=== PATIENT | female | born 1990 | race Caucasian/White ===

== ENCOUNTER 2016-10-09 12:16 | Emergency (ER) | payer SELFPAY ==
[2016-10-09] MEDS ORDERED: DEXAMETHASONE 10 MG/ML VIAL PO STA (12:44)
[2016-10-09] MEDS ORDERED: CHERRY SYRUP 10 ML UDC PO ONE (12:48)
[2016-10-09] MEDS ORDERED: DEXAMETHASONE 10 MG/ML VIAL ONE (12:48)
== END 2016-10-09 12:57 | disposition home or self-care (01) ==
DX: J02.0 Streptococcal pharyngitis (principal); H92.02 Otalgia, left ear
CPT/HCPCS: 87430; 99283; A9270

== ENCOUNTER 2017-04-05 15:40 | Outpatient (CLI) | payer MEDICAID ==
[2017-04-05 19:03] LABS: BASOPHILS # (AUTO) 0.1 10^3/uL (0.0-0.1); BASOPHILS % (AUTO) 0.7 %; EOSINOPHILS # (AUTO) 0.1 10^3/uL (0.0-0.7); EOSINOPHILS % (AUTO) 1.1 %; HGB - HEMOGLOBIN 11.4 g/dL (12.0-16.0); LYMPHOCYTES # (AUTO) 2.1 10^3/uL (1.5-3.5); LYMPHOCYTES % (AUTO) 30.3 %; MEAN CORPUSCULAR HEMOGLOBIN 31.3 pg (27.0-31.0); MEAN CORPUSCULAR HGB CONC 33.5 g/dL (32.0-36.0); MEAN CORPUSCULAR VOLUME 93.5 fL (81.0-99.0); MONOCYTES # (AUTO) 0.5 10^3/uL (0.0-1.0); NEUTROPHILS # (AUTO) 4.3 10^3/uL (1.5-6.6); NEUTROPHILS % (AUTO) 60.9 %; RED BLOOD COUNT 3.64 10^6/uL (4.20-5.40); RED CELL DISTRIBUTION WIDTH 13.4 % (12.0-15.0); UNCORRECTED WHITE BLOOD COUNT 7.1 x10^3/uL; WHITE BLOOD COUNT 7.1 x10^3/uL (4.8-10.8)
[2017-04-05 19:20] LABS: ALBUMIN/GLOBULIN RATIO 1.5 (1.0-2.2); BILIRUBIN,TOTAL 0.3 mg/dL (0.2-1.0); BUN - BLOOD UREA NITROGEN 9 mg/dL (6-20); CALCIUM 8.9 mg/dL (8.5-10.3); CARBON DIOXIDE - CO2 25 mmol/L (21-32); CHLORIDE 108 mmol/L (101-111); CHOL/HDL RATIO 2.5 (<4.4); CHOLESTEROL 131 mg/dL; CREATININE 0.6 mg/dL (0.4-1.0); GFR - MDRD 121 (>89); GLUCOSE 92 mg/dL (70-100); HDL CHOLESTEROL 53 mg/dL; LDL/HDL RATIO 1.2 (<4.4); POTASSIUM 3.8 mmol/L (3.5-5.0); SODIUM 138 mmol/L (135-145); TOTAL PROTEIN 6.6 g/dL (6.7-8.2); TRIGLYCERIDES 62 mg/dL; VLDL CHOLESTEROL 12 mg/dL
== END 2017-04-05 15:41 | disposition home or self-care (01) ==
LOC: LAB.N 15:40
PROVIDERS: ATTEND Nurse Practitioner Gerontology
DX: Z13.9 Encounter for screening, unspecified (principal)
CPT/HCPCS: 36415; 80053; 80061; 84443; 85025

== ENCOUNTER 2017-05-08 09:04 | Emergency (ER) | payer MEDICAID ==
[2017-05-08 09:21] VITALS: BP 102/72
[2017-05-08] MEDS ORDERED: PHENAZOPYRIDINE 100 MG TABLET PO STA (10:01)
--- NOTE | 2017-05-08 10:03 | ED Physician Documentation ---
History of Present Illness - Stated complaint Stated Complaint: FEMALE - Chief complaint Chief Complaint: UTI - Additonal information Additional information: hx from pt 26 fe,[place] LMP now denies preg dysuria and hesitance since 630 AM no vag dc or concern for STD no fever no NV no flank pain want to be checked for UTI Review of Systems Constitutional: denies: Fever, Chills GI: denies: Abdominal Pain, Nausea, Vomiting : reports: Dysuria, Frequency, Hesitancy, LMP (now). denies: Discharge, Now EGA Musculoskeletal: denies: Back pain Immunocompromised: denies: Immunocompromised PD PAST MEDICAL HISTORY - Past Surgical History Past Surgical History: No - Present Medications Home Medications: Ambulatory Orders Medication Instructions Recorded Confirmed Azithromycin [Zithromax] 250 mg PO DAILY #6 tablet 10/09/16 Sulfamethox/Trimeth 800/160 1 each PO BID #14 tablet 05/08/17 [Bactrim Ds 800/160] - Allergies Allergies/Adverse Reactions: Allergies Allergy/AdvReac Type Severity Reaction Status Date / Time Penicillins Allergy Anaphylaxis Verified 10/09/16 12:28 - Social History Does the pt smoke?: No Smoking Status: Never smoker Does the pt drink ETOH?: No Does the pt have substance abuse?: No - Immunizations Immunizations are current?: Yes PD ED PE NORMAL - Vitals Vital signs reviewed: Yes - General General: Alert and oriented X 3 - HEENT HEENT: Atraumatic - Cardiac Cardiac: RRR - Respiratory Respiratory: No respiratory distress, Clear bilaterally - Abdomen Abdomen: Soft, Non tender - Back Back: No CVA TTP - Derm Derm: Normal color - Neuro Neuro: Alert and oriented X 3 Results - Vitals Vitals: Vital Signs - 24 hr 05/08/17 09:18 Temperature 36.8 C Heart Rate 80 Respiratory 18 Rate Blood Pressure 102/72 O2 Saturation 99 Oxygen O2 Source Room air - Labs Labs: Laboratory Tests 05/08/17 09:49 Urine Color YELLOW Urine Clarity CLEAR Urine pH 6.0 Ur Specific [place] >=1.030 H Urine Protein NEGATIVE Urine Glucose (UA) NEGATIVE Urine Ketones NEGATIVE Urine Occult Blood MODERATE H Urine Nitrite NEGATIVE Urine Bilirubin NEGATIVE Urine Urobilinogen 0.2 (NORMAL) Ur Leukocyte Esterase NEGATIVE Urine RBC 0-5 Urine WBC >25 H Ur Squamous Epith Cells MANY Squamous H Urine Bacteria Many H Urine Mucus Marked Strands Ur Microscopic Review INDICATED Urine Culture Comments NOT INDICATED Urine HCG, Qual NEGATIVE Departure - Departure Disposition: 01 Home, Self Care Clinical Impression: Cystitis Condition: Good Instructions: ED UTI Cystitis Female Follow-Up: Elizabeth Montalvo ARNP [Primary Care Provider] - (for a repeat urinalysis after finishing the antibiotics) Prescriptions: Sulfamethox/Trimeth 800/160 [Bactrim Ds 800/160] 1 each PO BID #14 tablet Comments: Three days of antibiotics may be enough - if the symptoms have resolved please see you PMD to recheck the urine. If the symptoms persist, take the full 7 days Return if worse (fever chills flank pain) Forms: Activity restrictions
[2017-05-08 10:05] LABS: BILIRUBIN,URINE NEGATIVE (NEGATIVE)
[2017-05-08 10:10] LABS: HCG UR QUAL NEGATIVE; UA w/ MICROSCOPIC CHARGE YES
[2017-05-08] MEDS ORDERED: PHENAZOPYRIDINE 100 MG TABLET PO ONE (10:12)
[2017-05-08 10:20] LABS: UR CULTURE IF IND NOT INDICATED; WBC,URINE >25 /HPF (0-5)
== END 2017-05-08 11:38 | disposition home or self-care (01) ==
LOC: ED 09:04
DX: N30.90 Cystitis, unspecified without hematuria (principal)
CPT/HCPCS: 51798; 81001; 81025; 99283; A9270; 81003; 87086

== ENCOUNTER 2018-03-19 08:33 | Emergency (ER) | payer MEDICAID ==
[2018-03-19 08:43] VITALS: BP 109/68
--- NOTE | 2018-03-19 09:19 | ED Physician Documentation ---
History of Present Illness - Stated complaint Stated Complaint: SORE THROAT - Chief complaint Chief Complaint: Heent - Additonal information Additional information: hx from pt 27 y/o f denies preg hx recurrent strep painful enalrged tonsils with exudate today no fever no cough no other sx Review of Systems Constitutional: denies: Fever Ears: denies: Ear pain Throat: reports: Sore throat Respiratory: denies: Cough GI: denies: Abdominal Pain, Nausea, Vomiting : denies: Now EGA PD PAST MEDICAL HISTORY - Past Surgical History Past Surgical History: No - Present Medications Home Medications: Ambulatory Orders Medication Instructions Recorded Confirmed Azithromycin [Zithromax] 250 mg PO DAILY #6 tablet 03/19/18 - Allergies Allergies/Adverse Reactions: Allergies Allergy/AdvReac Type Severity Reaction Status Date / Time Penicillins Allergy Anaphylaxis Verified 03/19/18 08:46 - Social History Does the pt smoke?: No Smoking Status: Never smoker Does the pt drink ETOH?: No Does the pt have substance abuse?: No - Immunizations Immunizations are current?: Yes PD ED PE NORMAL - Vitals Vital signs reviewed: Yes - General General: Alert and oriented X 3 - HEENT HEENT: PERRL, Moist mucous membranes. 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) - Neck Neck: No: No adenopathy (ant no posterior) - Cardiac Cardiac: RRR - Respiratory Respiratory: No respiratory distress, Clear bilaterally - Derm Derm: Normal color - Neuro Neuro: Alert and oriented X 3 Results - Vitals Vitals: Vital Signs - 24 hr 03/19/18 08:41 Temperature 36.4 C L Heart Rate 68 Respiratory 20 Rate Blood Pressure 109/68 O2 Saturation 100 Oxygen O2 Source Room air - Labs Labs: Laboratory Tests 03/19/18 08:30 Group A Strep Rapid Negative PD MEDICAL DECISION MAKING - ED course ED course: pt meets 3/4 centor and has no posterior adenopathy to suggest monmo - will tx for strep - Sepsis Event Vital Signs: Vital Signs - 24 hr 03/19/18 08:41 Temperature 36.4 C L Heart Rate 68 Respiratory 20 Rate Blood Pressure 109/68 O2 Saturation 100 Oxygen O2 Source Room air Departure - Departure Disposition: 01 Home, Self Care Clinical Impression: Exudative pharyngitis Condition: Good Instructions: ED Strep Pharyngitis Poss Prescriptions: Azithromycin [Zithromax] 250 mg PO DAILY #6 tablet Comments: The rapid strep test was negative A throat culture will also be run But you meet most of the clinical criteria for strep throat and have a long hx of recrrent strep infection - so i think it prudent to treat you for strep throat based on your exam (rather than wait for the culture results in 3 days) Forms: Activity restrictions
== END 2018-03-19 09:28 | disposition home or self-care (01) ==
LOC: ED 08:33
DX: J02.9 Acute pharyngitis, unspecified (principal)
CPT/HCPCS: 87070; 87430; 99283

== ENCOUNTER 2018-10-07 04:42 | Emergency (ER) | payer MEDICAID ==
[2018-10-07 04:54] VITALS: BP 113/85
--- NOTE | 2018-10-07 05:06 | ED Physician Documentation ---
PD HPI URI - Stated complaint Stated Complaint: BODY ACHES,HEADACHE - Chief complaint Chief Complaint: Fever - History obtained from History obtained from: Patient, Family - History of Present Illness Timing - onset: Yesterday Timing duration: Days (1) Timing details: Gradual onset Pain level max: 7 Pain level now: 5 Associated symptoms: Fever, Chills, Nasal congestion, Rhinorrhea, Dry cough. No: Sinus pain, Sore throat, Swollen nodes, Hemoptysis, Chest pain, Dyspnea, NVD Contributing factors: Sick contact. No: Travel, Immunocompromised, Unimmunized, COPD / asthma Improves by: Rest Worsened by: Activity, Breathing Similar symptoms before: Has not had sx before Recently seen: Not recently seen - Additional information Additional information: did not receive flu shot this year Review of Systems Ten Systems: 10 systems reviewed and negative Constitutional: reports: Fever, Chills Respiratory: reports: Cough (dry) GI: denies: Vomiting, Diarrhea : denies: Dysuria, Frequency, Hesitancy, Now EGA Skin: denies: Rash Musculoskeletal: denies: Neck pain, Back pain Neurologic: denies: Headache PD PAST MEDICAL HISTORY - Past Medical History Past Medical History: No - Past Surgical History Past Surgical History: No - Present Medications Home Medications: Ambulatory Orders Medication Instructions Recorded Confirmed Benzonatate [Tessalon Perle] 100 - 200 mg PO TID PRN #30 capsule 10/07/18 Ondansetron Odt [Zofran] 4 mg TL Q6H PRN #10 tablet 10/07/18 - Allergies Allergies/Adverse Reactions: Allergies Allergy/AdvReac Type Severity Reaction Status Date / Time Penicillins Allergy Anaphylaxis Verified 10/07/18 04:51 - Social History Does the pt smoke?: No Smoking Status: Never smoker Does the pt drink ETOH?: Yes Does the pt have substance abuse?: No - Immunizations Immunizations are current?: Yes PD ED PE NORMAL - Vitals Vital signs reviewed: Yes - General General: Alert and oriented X 3, No acute distress, Well developed/nourished - HEENT HEENT: PERRL, Ears normal, Moist mucous membranes, Pharynx benign - Neck Neck: Supple, no meningeal sign - Cardiac Cardiac: RRR, Strong equal pulses - Respiratory Respiratory: No respiratory distress, Clear bilaterally - Abdomen Abdomen: Soft, Non tender, Non distended - Back Back: No spinal TTP - Derm Derm: Warm and dry, No rash - Extremities Extremities: No edema - Neuro Neuro: Alert and oriented X 3 - Psych Psych: Normal mood, Normal affect Results - Vitals Vitals: Vital Signs - 24 hr 10/07/18 10/07/18 04:49 04:52 Temperature 38.1 C H Heart Rate 128 H 115 H Respiratory 19 Rate Blood Pressure 113/85 H O2 Saturation 98 98 Oxygen O2 Source Room air - Labs Labs: Laboratory Tests 10/07/18 04:50 Ur Specific [place] 1.025 Urine HCG, Qual NEGATIVE PD MEDICAL DECISION MAKING - ED course Complexity details: reviewed results, re-evaluated patient, considered differential, d/w patient, d/w family ED course: 27-year-old female presents to the emergency department with what appears to be influenza A. This is rampant in the community currently, will hold off on testing at this point. We discussed the risks and benefits of Tamiflu and the patient declines at this time. We will continue supportive care and follow-up with her doctor. Patient counseled regarding signs and symptoms for which I believe and urgent re-evaluation would be necessary. Patient with good understanding of and agreement to plan and is comfortable going home at this time This document was made in part using voice recognition software. While efforts are made to proofread this document, sound alike and grammatical errors may occur. Departure - Departure Disposition: 01 Home, Self Care Clinical Impression: Influenza A Condition: Good Instructions: ED Flu Follow-Up: Elizabeth Montalvo ARNP [Primary Care Provider] - Within 1 week Prescriptions: Benzonatate [Tessalon Perle] 100 - 200 mg PO TID PRN #30 capsule PRN Reason: Cough Ondansetron Odt [Zofran] 4 mg TL Q6H PRN #10 tablet PRN Reason: Nausea / Vomiting Comments: Drink plenty of fluids and rest. Return if you worsen. Use Motrin and Tylenol as needed for pain and fevers. Forms: Activity restrictions Discharge Date/Time: 10/07/18 05:39
[2018-10-07] MEDS: IBUPROFEN 800 MG TABLET PO STA (05:15)
[2018-10-07 05:21] LABS: HCG UR QUAL NEGATIVE
== END 2018-10-07 05:39 | disposition home or self-care (01) ==
LOC: ED 04:42
DX: J10.1 Influenza due to other identified influenza virus with other respiratory manifestations (principal)
CPT/HCPCS: 81025; 99283; A9270

== ENCOUNTER 2020-12-20 20:59 | Emergency (ER) | payer MEDICAID ==
[2020-12-20 21:33] LABS: BILIRUBIN,URINE NEGATIVE (NEGATIVE); GLUCOSE, URINE (UA) NEGATIVE (NEGATIVE); KETONES,URINE (UA) NEGATIVE (NEGATIVE); LEUKOCYTE ESTERASE, URINE SMALL (NEGATIVE); NITRITE,URINE NEGATIVE (NEGATIVE); OCCULT BLOOD,URINE LARGE (NEGATIVE); PROTEIN,URINE TRACE mg/dL (NEGATIVE); UROBILINOGEN,URINE 0.2 (NORMAL) E.U./dL (NORMAL)
[2020-12-20 21:35] LABS: CLARITY,URINE HAZY (CLEAR)
[2020-12-20 21:36] LABS: HCG UR QUAL NEGATIVE
--- OUTSIDE RECORDS SUMMARY | 2020-12-20 21:43 | EXTERNAL MEDICAL SUMMARY RPT | Continuity of Care Document ---
:1990 Demographics Phone Unavailable Preferred Language Unknown Marital Status Unknown Religion Affiliation Unknown Race Unknown Ethnic Group Unknown Author Organization [place] Address [address] [id number] Phone Social History date description facility [phone]
[2020-12-20 21:45] LABS: BACTERIA,URINE Few /HPF (None Seen); RBC,URINE TNTC /HPF (0-5); SQUAMOUS EPITHELIAL CELL,UR FEW Squamous (<= Few); WBC CLUMPS,URINE PRESENT
--- NOTE | 2020-12-20 23:38 | ED Physician Documentation ---
PD HPI FEMALE - Stated complaint Stated Complaint: FEMALE - Chief complaint Chief Complaint: Abd Pain - History obtained from History obtained from: Patient - History of Present Illness Timing - onset: Enter time (02:00), Today Timing - details: Abrupt onset Associated symptoms: No: Fever Contributing factors: No: Similar symptoms before: Diagnosis (similar to previous UTIs) Recently seen: Not recently seen - Additional information Additional information: patient c/o "I think I have a UTI"; she c/o hematuria, urinary frequency, and painful/burning dysuria. These symptoms started at 2 AM and are similar to p revious UTIs Review of Systems Constitutional: denies: Fever GI: denies: Abdominal Pain : reports: Dysuria, Frequency, Hematuria. 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) : None HEENT: None Psych: None Musculoskeletal: None Derm: Herpes zoster - Past Surgical History Past Surgical History: No - Present Medications Home Medications: Ambulatory Orders Medication Instructions Recorded Confirmed Nitrofurantoin Monohyd/M-Cryst 100 mg PO BID #10 cap 12/20/20 [Macrobid 100 mg Capsule] Phenazopyridine HCl [Pyridium] 200 mg PO TID PRN #6 tablet 12/20/20 - Allergies Allergies/Adverse Reactions: Allergies Allergy/AdvReac Type Severity Reaction Status Date / Time Penicillins Allergy Anaphylaxis Verified 12/20/20 21:20 - Social History Does the pt smoke?: No Smoking Status: Never smoker Does the pt drink ETOH?: Yes ETOH Use: Wine Does the pt have substance abuse?: No - Immunizations Immunizations are current?: Yes - POLST Patient has POLST: No PD ED PE NORMAL - Vitals Vital signs reviewed: Yes - General General: Alert and oriented X 3, No acute distress, Well developed/nourished - Abdomen Abdomen: Soft, Non tender - Back Back: No CVA TTP Results - Vitals Vitals: Oxygen O2 Source Room air - Labs Labs: Microbiology 12/20/20 21:10 Urine Culture - Preliminary Urine,Clean Catch Laboratory Tests 12/20/20 12/20/20 21:10 21:10 Urine Color YELLOW Urine Clarity HAZY Urine pH 7.0 Ur Specific [place] 1.020 Urine Protein TRACE Urine Glucose (UA) NEGATIVE Urine Ketones NEGATIVE Urine Occult Blood LARGE H Urine Nitrite NEGATIVE Urine Bilirubin NEGATIVE Urine Urobilinogen 0.2 (NORMAL) Ur Leukocyte Esterase SMALL H Urine RBC TNTC H Urine WBC 6-10 H Urine WBC Clumps PRESENT Ur Squamous Epith Cells FEW Squamous Urine Bacteria Few Ur Microscopic Review INDICATED Urine Culture Comments INDICATED Urine HCG, Qual NEGATIVE PD MEDICAL DECISION MAKING - ED course Complexity details: reviewed results, considered differential, d/w patient Departure - Departure Disposition: 01 Home, Self Care Clinical Impression: Urinary tract infection Qualifiers: Urinary tract infection type: acute cystitis Hematuria presence: with hematuria Qualified Code(s): N30.01 - Acute cystitis with hematuria Condition: Good Instructions: ED UTI Cystitis Female Prescriptions: Nitrofurantoin Monohyd/M-Cryst [Macrobid 100 mg Capsule] 100 mg PO BID #10 cap Phenazopyridine HCl [Pyridium] 200 mg PO TID PRN #6 tablet PRN Reason: dysuria Discharge Date/Time: 12/20/20 23:57
[2020-12-20] MEDS ORDERED: PHENAZOPYRIDINE 100 MG TABLET PO STA (23:44)
[2020-12-20] MEDS ORDERED: NITROFURANTOIN MACRO 100 MG CAPSULE PO STA (23:44)
[2020-12-20 23:54] VITALS: BP 105/72
== END 2020-12-20 23:57 | disposition home or self-care (01) ==
LOC: ED 20:59
DX: N30.01 Acute cystitis with hematuria (principal)
CPT/HCPCS: 81001; 81025; 87077; 87086; 87181; 99283; A9270; 81003